=== PATIENT | female | born 1990 | race Two or more races ===

== ENCOUNTER 2019-12-21 11:11 | Inpatient (IN) | payer OTHER ==
[~2019-12-21] VITALS: Ht 162.6 cm; Wt 82.6 kg
[2019-12-27] MEDS ORDERED: PRENATAL TABLE1 EACH PO (08:08)
[2019-12-27] MEDS ORDERED: OMEPRAZOLE MAGN20 MG PO (08:09)
== END 2019-12-29 15:17 | DRG 807 ==
LOC: SURG-SUITE 12-27 06:27 → LDR 12-27 06:27 → SURG-SUITE 12-27 17:08 → EDBD 01-02 12:00 → OB/GYN 01-02 12:00
PROVIDERS: ADMIT Obstetrics & Gynecology Maternal & Fetal Medicine
PROC: 10E0XZZ Delivery of Products of Conception, External Approach (ICD-10-PCS; principal; 2019-12-27)
PROC: 0W8NXZZ Division of Female Perineum, External Approach (ICD-10-PCS; 2019-12-27)
PROC: 4A1HXCZ Monitoring of Products of Conception, Cardiac Rate, External Approach (ICD-10-PCS; 2019-12-27)
DX: O80 Encounter for full-term uncomplicated delivery (principal); Z37.0 Single live birth; Z3A.39 39 weeks gestation of pregnancy

== ENCOUNTER 2019-12-26 08:49 | Outpatient (CLI) | payer OTHER ==
[2019-12-27] MEDS ORDERED: PRENATAL TABLE1 EACH PO (08:08)
[2019-12-27] MEDS ORDERED: OMEPRAZOLE MAGN20 MG PO (08:09)
== END 2019-12-26 09:25 | disposition home or self-care (01) ==
LOC: NST 08:49
DX: Z34.83 Encounter for supervision of other normal pregnancy, third trimester (principal)

== ENCOUNTER 2021-04-03 14:30 | Inpatient (IN) | payer OTHER ==
[~2021-04-03] VITALS: Ht 162.6 cm; Wt 85.3 kg
[~2021-04-03 14:30] MED LIST: OMEPRAZOLE MAGN20 MG PO; PRENATAL TABLE1 EACH PO
[2021-04-16] MEDS ORDERED: PRENATAL TABLE1 EAC1 PO (06:15)
[2021-04-16] MEDS ORDERED: IRON236 MG PO (06:15)
== END 2021-04-18 14:45 | disposition home or self-care (01) | DRG 807 ==
LOC: LDR 04-16 05:42 → OB/GYN 04-16 15:38 → SURG-SUITE 04-17 09:22 → OB/GYN 04-19 14:30
PROVIDERS: ADMIT Obstetrics & Gynecology; ATTEND Obstetrics & Gynecology
PROC: 10E0XZZ Delivery of Products of Conception, External Approach (ICD-10-PCS; principal; 2021-04-16)
PROC: 3E033VJ Introduction of Other Hormone into Peripheral Vein, Percutaneous Approach (ICD-10-PCS; 2021-04-16)
PROC: 0HQ9XZZ Repair Perineum Skin, External Approach (ICD-10-PCS; 2021-04-16)
PROC: 4A1HXFZ Monitoring of Products of Conception, Cardiac Rhythm, External Approach (ICD-10-PCS; 2021-04-16)
DX: O70.0 First degree perineal laceration during delivery (principal); Z37.0 Single live birth; Z3A.39 39 weeks gestation of pregnancy; Z20.822 Contact with and (suspected) exposure to COVID-19